=== PATIENT | male | born 1940 | race Caucasian/White ===

== ENCOUNTER 2020-03-16 05:17 | Inpatient (IN) | payer MEDICARE, MEDICAID ==
[2020-03-16] MEDS ORDERED: Acetaminophen 325 MG Tab PO PRN (05:51)
[2020-03-16] MEDS ORDERED: Lactated Ringers 1,000 ML IV SCH (06:00)
[2020-03-16 07:26] LABS: BLOOD UREA NITROGEN,BUN 21 mg/dL (7.0-18.0); CARBON DIOXIDE,CO2 26.3 mmol/L (21.0-32.0); CHLORIDE,CL 103 mmol/L (98-107); GLUCOSE RANDOM 122 mg/dL (74-106); POTASSIUM,K 2.9 mmol/L (3.5-5.1); SODIUM,NA 141 mmol/L (136-148)
--- NOTE | 2020-03-16 07:51 | PCM.HP.2 ---
H&P History of Present Illness - General Date of Service: 03/16/20 Admit Problem/Dx: Admission Diagnosis/Problem Admission Diagnosis/Problem Hypotension History Limitations: Reports: Altered Mental Status - History of Present Illness Initial Comments - Free Text/Narative: This 79-year-old male with past medical history of hypertension A. fib CAD [place] CVA and dementia presented to [facility] initially from assisted living care. Apparently EMS was called as patient was noted to be confused and having low blood pressures. Initially blood pressures were noted 70/40 and 80/50 he was given some fluids in [facility] ER and blood pressure did improve. No significant lab work showed infection or concerns. He was noted to have hypokalemia and atrial fibrillation on EKG. Chest x-ray showed possible prominence of interstitium with peripheral hazy alveolar infiltrates. The hospital is on diversion currently and and able to keep patients. Physician called hospitalist service to have patient transferred and admitted in our facility. Upon arrival patient is alert not completely oriented but he is able to answer questions appropriately. He denies feeling ill denies any shortness of breath cough chest pain or abdominal pain. He reports he is eating and drinking well denies any fevers or chills. Since arrival patient's blood pressure has been stable without any noticeable hypotension. He has been afebrile. New lab studies were obtained on arrival along with chest x-ray. Lab work on arrival to our facility shows no leukocytosis as white count is 7.18 potassium was noted at 2.9 BUN 21 creatinine 1.8. Phosphate 1.9 magnesium 1.9 troponin negative UA showed +1 bacteria large blood positive pyuria 2-4 chest x- ray revealed possible right mid lobe infiltrate. Blood cultures obtained as well as urine culture. Lactic acid elevated at 2.3 he was treated with a 500 mill bolus at this time. He will be admitted observation for hypotension, CAP and UTI. - Related Data Allergies/Adverse Reactions: Allergies Allergy/AdvReac Type Severity Reaction Status Date / Time wheat Allergy Other Verified 03/16/20 08:06 Home Medications: Home Meds Albuterol/Ipratropium [Combivent Respimat] 1 puff IH QID 03/16/20 [History] Aspirin 81 mg PO DAILY 03/16/20 [History] Chlorthalidone 50 mg PO DAILY 03/16/20 [History] FLUoxetine [PROzac] 20 mg PO DAILY 03/16/20 [History] Levothyroxine [Synthroid] 100 mcg PO ACBREAKFAST 03/16/20 [History] Metoprolol Tartrate 25 mg PO TID 03/16/20 [History] Pantoprazole [ProTONIX] 40 mg PO DAILY@0700 03/16/20 [History] Rivaroxaban [Xarelto] 20 mg PO DAILY 03/16/20 [History] Ubidecarenone [Co Q-10] 100 mg PO DAILY 03/16/20 [History] atorvaSTATin [Lipitor] 40 mg PO DAILY 03/16/20 [History] H&P Review of Systems - Review of Systems: Review Of Systems: See Below General: Reports: No Symptoms. Denies: Fever, Chills, Malaise, Weakness HEENT: Reports: No Symptoms. Denies: Headaches, Sinus Congestion, Vertigo Pulmonary: Denies: Shortness of Breath, Cough, Sputum Cardiovascular: Reports: Blood Pressure Problem. Denies: Chest Pain, Dyspnea on Exertion, Syncope Gastrointestinal: Reports: No Symptoms. Denies: Abdominal Pain, Black Stool, Bloody Stool, Constipation, Nausea, Vomiting Genitourinary: Reports: No Symptoms. Denies: Dysuria, Frequency, Burning Skin: Reports: No Symptoms Psychiatric: Reports: No Symptoms Neurological: Reports: No Symptoms Hematologic/Lymphatic: Reports: No Symptoms Immunologic: Reports: No Symptoms Exam - Exam Exam: See Below - Vital Signs Vital Signs: Last Vital Signs Temp 98.2 F 03/16/20 06:00 Pulse 80 03/16/20 06:00 Resp 17 03/16/20 06:00 BP 145/74 H 03/16/20 06:00 Pulse Ox 97 03/16/20 06:00 - Exam General: Alert, Oriented HEENT: Conjunctiva Clear, Mucosa Moist & [place], Posterior Pharynx Clear Neck: Supple Lungs: Normal Respiratory Effort, Decreased Breath Sounds, Crackles (Fine crackles bibasilar) Cardiovascular: Regular Rate, Irregular Rhythm. No: Systolic Murmur GI/Abdominal Exam: Normal Bowel Sounds, Soft, Non-Tender Extremities: Normal Inspection, Normal Range of Motion, Non-Tender, No Pedal Edema Skin: Warm, Dry, Intact Neuro Extensive - Mental Status: Alert. No: Oriented x3 (Alert and oriented to person and time) Neuro Extensive - Motor, Sensory, Reflexes: CN II-XII Intact Psychiatric: Alert, Normal Affect, Normal Mood, Other (Very impulsive in movements) - Patient Data Lab Results Last 24 hrs: Laboratory Results - last 24 hr 03/16/20 03/16/20 03/16/20 Range/Units 06:53 06:53 07:00 WBC 7.18 (4.0-11.0) K/uL RBC 4.27 L (4.50-5.90) M/uL Hgb 14.3 (13.0-17.0) g/dL Hct 42.1 (38.0-50.0) % MCV 98.6 H (80.0-98.0) fL MCH 33.5 H (27.0-32.0) pg MCHC 34.0 (31.0-37.0) g/dL RDW Std Deviation 46.8 (28.0-62.0) fl RDW Coeff of Monika 13 (11.0-15.0) % Plt Count 158 (150-400) K/uL MPV 11.70 (7.40-12.00) fL Neut % (Auto) 76.3 (48.0-80.0) % Lymph % (Auto) 17.3 (16.0-40.0) % [place] % (Auto) 5.3 (0.0-15.0) % Eos % (Auto) 0.8 (0.0-7.0) % Baso % (Auto) 0.3 (0.0-1.5) % Neut # (Auto) 5.5 (1.4-5.7) K/uL Lymph # (Auto) 1.2 (0.6-2.4) K/uL [place] # (Auto) 0.4 (0.0-0.8) K/uL Eos # (Auto) 0.1 (0.0-0.7) K/uL Baso # (Auto) 0.0 (0.0-0.1) K/uL Nucleated RBC % 0.0 /100WBC Nucleated RBCs # 0 K/uL Sodium 141 (136-148) mmol/L Potassium 2.9 L (3.5-5.1) mmol/L Chloride 103 (98-107) mmol/L Carbon Dioxide 26.3 (21.0-32.0) mmol/L BUN 21 H (7.0-18.0) mg/dL Creatinine 1.8 H (0.8-1.3) mg/dL Est Cr Clr Drug Dosing TNP Estimated GFR (MDRD) 36.6 ml/min Glucose 122 H (74-106) mg/dL Calcium 8.2 L (8.5-10.1) mg/dL Phosphorus 1.9 L (2.6-4.7) mg/dL Magnesium 1.9 (1.8-2.4) mg/dL Total Bilirubin 0.8 (0.2-1.0) mg/dL AST 19 (15-37) IU/L ALT 20 (14-63) IU/L Alkaline Phosphatase 71 (46-116) U/L Troponin I < 0.050 (0.000-0.056) ng/mL Total Protein 7.0 (6.4-8.2) g/dL Albumin 2.9 L (3.4-5.0) g/dL Globulin 4.1 H (2.6-4.0) g/dL Albumin/Globulin Ratio 0.7 L (0.9-1.6) Urine Color DARK YELLOW Urine Appearance CLOUDY Urine pH 5.0 (5.0-8.0) Ur Specific [place] >= 1.030 (1.001-1.035) Urine Protein TRACE H (NEGATIVE) mg/dL Urine Glucose (UA) NEGATIVE (NEGATIVE) mg/dL Urine Ketones NEGATIVE (NEGATIVE) mg/dL Urine Occult Blood LARGE H (NEGATIVE) Urine Nitrite NEGATIVE (NEGATIVE) Urine Bilirubin NEGATIVE (NEGATIVE) Urine Urobilinogen 0.2 (<2.0) EU/dL Ur Leukocyte Esterase NEGATIVE (NEGATIVE) Urine RBC TOO NUMEROUS TO CT (0-2/HPF) Urine WBC 2-4 (0-5/HPF) Ur Epithelial Cells FEW (NONE-FEW) Amorphous Sediment MODERATE (NEGATIVE) Urine Bacteria 1+ H (NEGATIVE) Urine Mucus LIGHT (NONE-MOD) Result Diagrams: 03/16/20 06:53 03/16/20 06:53 Sepsis Event Note - Focused Exam Vital Signs: Vital Signs Temp Pulse Resp BP Pulse Ox 03/16/20 06:00 98.2 F 80 17 145/74 H 97 - Problem List (1) CAP (community acquired pneumonia) SNOMED Code(s): 209891349 ICD Code: J18.9 - PNEUMONIA, UNSPECIFIED ORGANISM Status: Acute Current Visit: Yes (2) UTI (urinary tract infection) SNOMED Code(s): 67469469 ICD Code: N39.0 - URINARY TRACT INFECTION, SITE NOT SPECIFIED Status: Acute Current Visit: Yes (3) VONNIE (acute kidney injury) SNOMED Code(s): 04212878, 47579795 ICD Code: N17.9 - ACUTE KIDNEY FAILURE, UNSPECIFIED Status: Acute Current Visit: Yes (4) Hypokalemia SNOMED Code(s): 96659203 ICD Code: E87.6 - HYPOKALEMIA Status: Acute Current Visit: Yes (5) Hypophosphatemia SNOMED Code(s): 7006213 ICD Code: E83.39 - OTHER DISORDERS OF PHOSPHORUS METABOLISM Status: Acute Current Visit: Yes (6) History of CVA (cerebrovascular accident) SNOMED Code(s): 531307499 ICD Code: Z86.73 - PRSNL HX OF TIA (TIA), AND CEREB INFRC W/O RESID DEFICITS Status: Chronic Current Visit: Yes (7) History of myocardial infarction SNOMED Code(s): 426137270 ICD Code: I25.2 - OLD MYOCARDIAL INFARCTION Status: Chronic Current Visit: Yes (8) Hypertension SNOMED Code(s): 97895520 ICD Code: I10 - ESSENTIAL (PRIMARY) HYPERTENSION Status: Chronic Current Visit: Yes (9) Dementia SNOMED Code(s): 91557262 ICD Code: F03.90 - UNSPECIFIED DEMENTIA WITHOUT BEHAVIORAL DISTURBANCE Status: Chronic Current Visit: Yes (10) CAD (coronary artery disease) SNOMED Code(s): 51756865 ICD Code: I25.10 - ATHSCL HEART DISEASE OF [place] CORONARY ARTERY W/O ANG PCTRS Status: Chronic Current Visit: Yes (11) Hypothyroidism SNOMED Code(s): 97673100 ICD Code: E03.9 - HYPOTHYROIDISM, UNSPECIFIED Status: Chronic Current Visit: Yes (12) GERD (gastroesophageal reflux disease) SNOMED Code(s): 303660053 ICD Code: K21.9 - GASTRO-ESOPHAGEAL REFLUX DISEASE WITHOUT ESOPHAGITIS Status: Chronic Current Visit: Yes (13) Atrial fibrillation SNOMED Code(s): 85430882 ICD Code: I48.91 - UNSPECIFIED ATRIAL FIBRILLATION Status: Chronic Current Visit: Yes Problem List Initiated/Reviewed/Updated: Yes Orders Last 24hrs: Active Orders 24 hr Category Date Time Status Admission Status [Patient Status] [ADT] Routine ADT 03/16/20 05:48 Active Antiembolic Devices [RC] PER UNIT ROUTINE Care 03/16/20 05:52 Active EKG 12 Lead [EKG Documentation Completion] [RC] STAT Care 03/16/20 06:27 Active Telemetry Monitoring [Cardiac Monitoring] [RC] . Care 03/16/20 05:51 Active DIRECTED Vital Signs [RC] Q4H Care 03/16/20 05:51 Active Heart Healthy Diet [DIET] Diet 03/16/20 Breakfast Active Chest 1V Frontal [CR] Routine Exams 03/16/20 06:53 Ordered CORONAVIRUS COVID-19 ROBSON [MOLEC] Stat Lab 03/16/20 07:08 Received Acetaminophen [TylenoL] Med 03/16/20 05:51 Active 650 mg PO Q4H PRN Lactated Ringers [Ringers, Lactated] 1,000 ml Med 03/16/20 06:00 Active IV ASDIRECTED SCD [Sequential Compression Device] [OM.PC] Routine Oth 03/16/20 05:52 Ordered Medication Orders Acetaminophen (Tylenol) 650 mg PO Q4H PRN PRN Reason: Pain Lactated Ringer's (Ringers, Lactated) 1,000 mls @ 125 mls/hr IV ASDIRECTED BERNABE Last Admin: 03/16/20 06:05 Dose: 125 mls/hr Documented by: ZACHARY Assessment/Plan Comment:: This 79-year-old male admitted with CAP, UTI, VONNIE abnormalities 1. CAP - Xray shows RML infiltrate - BC pending - Not currently needing oxygen - Oxygen PRN keep sats >90% - Rocpehin and Azithromycin - Combivent inhaler per home dosing - hypotension has resolved here. Appears at home BPs average low 105/60s. 2. UTI - Per UA, UC pending - Denies symptoms - ROcephin 1 gm IV daily 3. VONNIE - Given IVFs - Unsure if this is chronic at baseline - Avoid nephrotoxic medications - Recheck in am 4. Hypokalemia/hypophosphatemia - Replace per IV today and check later this evening. - Monitor on telemetry 5. CAD/CVA/Afib/HTN - Continue Metoprolol, Xarelto and Atorvastatin and ASA - Hold Chlorthalidone due to electrolyte abnormalities and hypotension 6. Hypothyroidism: - Continue Levothyroxine VTE prophylaxis: Xarelto GI prophylaxis: Protonix home dose po Code Status: Full code, POLST on chart Dispo: 2 to 3 days pending improvement I did attempt to call daughter Alise at [phone] but the line went directly to [facility]
[2020-03-16] MEDS ORDERED: Potassium Phosphates 30 MMOLE in Sodium Chloride 0.9% 1,000 ML IV ONE (08:03)
[2020-03-16] MEDS ORDERED: Ondansetron 4 MG/2 ML SDV IVPUSH PRN (08:11)
[2020-03-16] MEDS ORDERED: Docusate Sodium 100 MG Cap PO PRN (08:11)
[2020-03-16] MEDS ORDERED: Sodium Chloride 0.9% 2.5 ML Syringe FLUSH PRN (08:11)
--- NOTE | 2020-03-16 08:20 | CR ---
INDICATION: Hypotension. Comparison: None. TECHNIQUE: Portable AP chest. FINDINGS: Normal size cardiac silhouette. Questionable infiltrates right middle lobe medial segment. No pneumothorax or pleural effusion. No evidence of CHF. IMPRESSION: 1. Questionable infiltrates medial segment right middle lobe. 2. Negative portable AP chest otherwise. Dictated by Evan Delgado MD @ Mar 16 2020 8:17AM Signed by Dr. Evan Delgado @ Mar 16 2020 8:19AM
[2020-03-16] MEDS ORDERED: [UNRECOGNIZED DRUG - OTHER] IV ONE (08:30)
[2020-03-16] MEDS ORDERED: POTASSIUM PHOSPHATES IV ONE (08:30)
[2020-03-16] MEDS ORDERED: POTASSIUM CHLORIDE IV ONE (08:30)
[2020-03-16] MEDS ORDERED: Sodium Chloride 0.9% 500 ML IV SCH (09:15)
[2020-03-16] MEDS: cefTRIAXone 1 GM in Premix Bag 1 BAG IV SCH (09:36)
[2020-03-16] MEDS: Azithromycin 500 MG in Sodium Chloride 0.9% 250 ML IV SCH (10:14)
[2020-03-16] MEDS: atorvaSTATin 40 MG Tab PO SCH (12:59)
[2020-03-16] MEDS: Aspirin 81 MG Tab.Chew PO SCH (12:59)
[2020-03-16] MEDS: Ubidecarenone [Co Q-10] 100 MG PO SCH (13:13)
[2020-03-16] MEDS: Metoprolol Tartrate 25 MG Tab PO SCH ×2 (13:13→21:57)
[2020-03-16] MEDS: Rivaroxaban 10 MG Tab PO SCH (17:06)
[2020-03-16] MEDS: Albuterol/Ipratropium 4 GM Inhalation Spray INH SCH ×2 (17:11→23:22)
[2020-03-16] MEDS ORDERED: Potassium Chloride 20 MEQ Tab.ER PO ONE (19:01)
[2020-03-17] MEDS: Metoprolol Tartrate 25 MG Tab PO SCH ×3 (05:07→22:26)
[2020-03-17] MEDS: Albuterol/Ipratropium 4 GM Inhalation Spray INH SCH ×4 (06:08→23:22)
[2020-03-17] MEDS ORDERED: Levothyroxine 100 MCG Tab PO SCH (07:30)
[2020-03-17] MEDS: Pantoprazole 40 MG Tab.CR PO SCH (08:01)
[2020-03-17] MEDS: Levothyroxine 75 MCG Tab PO SCH (08:01)
[2020-03-17] MEDS: cefTRIAXone 1 GM in Premix Bag 1 BAG IV SCH (08:05)
[2020-03-17] MEDS: atorvaSTATin 40 MG Tab PO SCH (09:33)
[2020-03-17] MEDS: Azithromycin 500 MG in Sodium Chloride 0.9% 250 ML IV SCH (09:34)
[2020-03-17] MEDS: Aspirin 81 MG Tab.Chew PO SCH (09:34)
[2020-03-17] MEDS: Ubidecarenone [Co Q-10] 100 MG PO SCH (09:34)
[2020-03-17 10:42] LABS: CARBON DIOXIDE,CO2 27.9 mmol/L (21.0-32.0); POTASSIUM,K 3.2 mmol/L (3.5-5.1)
--- NOTE | 2020-03-17 13:36 | PCM.PN ---
- General Info Date of Service: 03/17/20 Admission Dx/Problem (Free Text): Admission Diagnosis/Problem Admission Diagnosis/Problem Hypotension Subjective Update: Patient seen at bedside, no acute distress, no overnight events. - Review of Systems General: Denies: Fever, Weakness Pulmonary: Denies: Shortness of Breath, Pleuritic Chest Pain Cardiovascular: Denies: Chest Pain, Palpitations Gastrointestinal: Denies: Abdominal Pain, Constipation Genitourinary: Reports: Dysuria, Urgency. Denies: Frequency, Burning Musculoskeletal: Denies: Neck Pain, Shoulder Pain - Patient Data Vitals - Most Recent: Last Vital Signs Temp 36.8 C 03/17/20 13:01 Pulse 74 03/17/20 13:01 Resp 17 03/17/20 13:01 BP 139/78 03/17/20 13:01 Pulse Ox 94 L 03/17/20 13:01 Weight - Most Recent: 78.925 kg I&O - Last 24 Hours: Intake & Output 03/16/20 03/17/20 03/17/20 22:59 06:59 14:59 Intake Total 440 Output Total 470 Balance -30 Lab Results Last 24 Hours: Laboratory Results - last 24 hr 03/16/20 03/17/20 03/17/20 Range/Units 18:25 10:13 10:13 WBC 6.08 (4.0-11.0) K/uL RBC 3.79 L (4.50-5.90) M/uL Hgb 12.8 L (13.0-17.0) g/dL Hct 37.8 L (38.0-50.0) % MCV 99.7 H (80.0-98.0) fL MCH 33.8 H (27.0-32.0) pg MCHC 33.9 (31.0-37.0) g/dL RDW Std Deviation 47.7 (28.0-62.0) fl RDW Coeff of Monika 13 (11.0-15.0) % Plt Count 142 L (150-400) K/uL MPV 11.70 (7.40-12.00) fL Neut % (Auto) 75.8 (48.0-80.0) % Lymph % (Auto) 12.8 L (16.0-40.0) % [place] % (Auto) 9.0 (0.0-15.0) % Eos % (Auto) 2.1 (0.0-7.0) % Baso % (Auto) 0.3 (0.0-1.5) % Neut # (Auto) 4.6 (1.4-5.7) K/uL Lymph # (Auto) 0.8 (0.6-2.4) K/uL [place] # (Auto) 0.6 (0.0-0.8) K/uL Eos # (Auto) 0.1 (0.0-0.7) K/uL Baso # (Auto) 0.0 (0.0-0.1) K/uL Nucleated RBC % 0.0 /100WBC Nucleated RBCs # 0 K/uL Sodium 142 (136-148) mmol/L Potassium 3.2 L 3.2 L (3.5-5.1) mmol/L Chloride 106 (98-107) mmol/L Carbon Dioxide 27.9 (21.0-32.0) mmol/L BUN 16 (7.0-18.0) mg/dL Creatinine 1.5 H (0.8-1.3) mg/dL Est Cr Clr Drug Dosing 41.88 mL/min Estimated GFR (MDRD) 45.1 ml/min Glucose 144 H (74-106) mg/dL Calcium 8.0 L (8.5-10.1) mg/dL Phosphorus 1.9 L (2.6-4.7) mg/dL Magnesium 1.8 (1.8-2.4) mg/dL Stefan Results Last 24 Hours: Microbiology 03/16/20 08:49 Aerobic Blood Culture - Preliminary Blood - Venous - Lab Draw NO GROWTH AFTER 1 DAY Anaerobic Blood Culture - Preliminary NO GROWTH AFTER 1 DAY 03/16/20 08:38 Aerobic Blood Culture - Preliminary Blood - Venous NO GROWTH AFTER 1 DAY Anaerobic Blood Culture - Preliminary NO GROWTH AFTER 1 DAY Med Orders - Current: Current Medications Acetaminophen (Tylenol) 650 mg PO Q4H PRN PRN Reason: Pain Albuterol/Ipratropium (Combivent Respimat) 0 gm INH QID [facility] Last Admin: 03/17/20 11:36 Dose: 1 puff Documented by: Aspirin (Aspirin) 81 mg PO DAILY [facility] Last Admin: 03/17/20 09:34 Dose: 81 mg Documented by: Atorvastatin Calcium (Lipitor) 40 mg PO DAILY [facility] Last Admin: 03/17/20 09:33 Dose: 40 mg Documented by: Docusate Sodium (Colace) 100 mg PO BID PRN PRN Reason: Constipation Fluoxetine HCl (Prozac) 20 mg PO DAILY [facility] Last Admin: 03/17/20 09:33 Dose: 20 mg Documented by: Azithromycin 500 mg/ Sodium (Chloride) 250 mls @ 250 mls/hr IV DAILY [facility] Last Admin: 03/17/20 09:34 Dose: 250 mls/hr Documented by: Ceftriaxone Sodium/Dextrose 1 (gm/ Premix) 50 mls @ 100 mls/hr IV Q24H [facility] Last Admin: 03/17/20 08:05 Dose: 100 mls/hr Documented by: Levothyroxine Sodium (Levothyroxine) 75 mcg PO ACBREAKFAST [facility] Last Admin: 03/17/20 08:01 Dose: 75 mcg Documented by: Metoprolol Tartrate (Lopressor) 25 mg PO TID [facility] Last Admin: 03/17/20 08:01 Dose: 25 mg Documented by: Ondansetron HCl (Zofran) 4 mg IVPUSH Q4H PRN PRN Reason: Nausea Pantoprazole Sodium (Protonix) 40 mg PO DAILY@0800 [facility] Last Admin: 03/17/20 08:01 Dose: 40 mg Documented by: Ubidecarenone [Co Q- (10] 100 Mg) 100 each PO DAILY [facility] Last Admin: 03/17/20 09:34 Dose: Not Given Documented by: Rivaroxaban (Xarelto) 20 mg PO DAILY@1700 [facility] Last Admin: 03/16/20 17:06 Dose: 20 mg Documented by: Sodium Chloride (Saline Flush) 2.5 ml FLUSH ASDIRECTED PRN PRN Reason: Keep Vein Open Discontinued Medications Lactated Ringer's (Ringers, Lactated) 1,000 mls @ 125 mls/hr IV ASDIRECTED [facility] Last Admin: 03/16/20 06:05 Dose: 125 mls/hr Documented by: Potassium Phosphate 15 mmole/Potassium Chloride 20 meq/Sodium Chloride 1,015 mls @ 125 mls/hr IV ONETIME ONE Stop: 03/16/20 16:37 Last Admin: 03/16/20 11:25 Dose: 125 mls/hr Documented by: Sodium Chloride (Normal Saline) 500 mls @ 999 mls/hr IV .BOLUS BERNABE Last Admin: 03/16/20 09:30 Dose: 999 mls/hr Documented by: Levothyroxine Sodium (Synthroid) 100 mcg PO ACBREAKFAST [facility] Potassium Chloride (Klor-Con M20) 40 meq PO ONETIME ONE Stop: 03/16/20 19:02 Last Admin: 03/16/20 19:51 Dose: 40 meq Documented by: - Exam General: Alert, Cooperative, No Acute Distress Lungs: Clear to Auscultation, Normal Respiratory Effort Cardiovascular: Regular Rate, Regular Rhythm GI/Abdominal Exam: Normal Bowel Sounds, Soft, Non-Tender Sepsis Event Note - Evaluation Sepsis Screening Result: No Definite Risk - Focused Exam Vital Signs: Vital Signs Temp Pulse Pulse Resp BP BP Pulse Ox 03/17/20 13:01 36.8 C 74 17 139/78 94 L 03/17/20 08:03 37.1 C 99 16 156/90 H 95 03/17/20 08:01 99 156/90 H 03/17/20 04:32 36.1 C 50 L 18 130/80 97 - Problem List & Annotations (1) VONNIE (acute kidney injury) SNOMED Code(s): 19228552, 59001919 Code(s): N17.9 - ACUTE KIDNEY FAILURE, UNSPECIFIED Status: Acute Current Visit: Yes (2) CAP (community acquired pneumonia) SNOMED Code(s): 047057912 Code(s): J18.9 - PNEUMONIA, UNSPECIFIED ORGANISM Status: Acute Current Visit: Yes (3) Hypokalemia SNOMED Code(s): 77012584 Code(s): E87.6 - HYPOKALEMIA Status: Acute Current Visit: Yes (4) Hypophosphatemia SNOMED Code(s): 2948575 Code(s): E83.39 - OTHER DISORDERS OF PHOSPHORUS METABOLISM Status: Acute Current Visit: Yes (5) UTI (urinary tract infection) SNOMED Code(s): 92149530 Code(s): N39.0 - URINARY TRACT INFECTION, SITE NOT SPECIFIED Status: Acute Current Visit: Yes (6) Atrial fibrillation SNOMED Code(s): 43581274 Code(s): I48.91 - UNSPECIFIED ATRIAL FIBRILLATION Status: Chronic Current Visit: Yes (7) CAD (coronary artery disease) SNOMED Code(s): 98270938 Code(s): I25.10 - ATHSCL HEART DISEASE OF [place] CORONARY ARTERY W/O ANG PCTRS Status: Chronic Current Visit: Yes (8) Dementia SNOMED Code(s): 02623617 Code(s): F03.90 - UNSPECIFIED DEMENTIA WITHOUT BEHAVIORAL DISTURBANCE Status: Chronic Current Visit: Yes (9) GERD (gastroesophageal reflux disease) SNOMED Code(s): 844307275 Code(s): K21.9 - GASTRO-ESOPHAGEAL REFLUX DISEASE WITHOUT ESOPHAGITIS Status: Chronic Current Visit: Yes (10) History of CVA (cerebrovascular accident) SNOMED Code(s): 364021642 Code(s): Z86.73 - PRSNL HX OF TIA (TIA), AND CEREB INFRC W/O RESID DEFICITS Status: Chronic Current Visit: Yes (11) History of myocardial infarction SNOMED Code(s): 306452588 Code(s): I25.2 - OLD MYOCARDIAL INFARCTION Status: Chronic Current Visit: Yes (12) Hypertension SNOMED Code(s): 45238411 Code(s): I10 - ESSENTIAL (PRIMARY) HYPERTENSION Status: Chronic Current Visit: Yes (13) Hypothyroidism SNOMED Code(s): 75471546 Code(s): E03.9 - HYPOTHYROIDISM, UNSPECIFIED Status: Chronic Current Visit: Yes - Problem List Review Problem List Initiated/Reviewed/Updated: Yes - Plan Plan:: This 79-year-old male admitted with CAP, UTI, VONNIE abnormalities 1. CAP - Xray shows RML infiltrate - BC pending - Not currently needing oxygen - Oxygen PRN keep sats >90% - Rocpehin and Azithromycin - Combivent inhaler per home dosing - hypotension has resolved here. Appears at home BPs average low 105/60s. 2. UTI - Per UA, UC pending - Denies symptoms - Rocephin 1 gm IV daily for now, de-esclate based on cultures 3. VONNIE - Given IVFs, improving - Unsure of baseline - Avoid nephrotoxic medications - Recheck in am 4. Hypokalemia/hypophosphatemia - Will replete - Monitor on telemetry 5. CAD/CVA/Afib/HTN - Continue Metoprolol, Xarelto and Atorvastatin and ASA - Hold Chlorthalidone due to electrolyte abnormalities and hypotension 6. Hypothyroidism: - Continue Levothyroxine VTE prophylaxis: Xarelto GI prophylaxis: Protonix home dose po Code Status: Full code, POLST on chart Dispo: 2 to 3 days pending improvement I did attempt to call daughter Alise at [phone] [facility]
[2020-03-17] MEDS ORDERED: Phosphorus #1 250 MG Tab PO ONE (14:18)
[2020-03-17] MEDS ORDERED: Potassium Chloride 10% 20 MEQ/15 ML Soln 30 ML UD Cup PO ONE (14:18)
[2020-03-17] MEDS ORDERED: Magnesium Oxide 400 MG Tab PO ONE (14:18)
[2020-03-17] MEDS: Rivaroxaban 10 MG Tab PO SCH (17:55)
[2020-03-18] MEDS: Albuterol/Ipratropium 4 GM Inhalation Spray INH SCH ×3 (05:57→18:46)
[2020-03-18] MEDS: Levothyroxine 75 MCG Tab PO SCH (06:39)
[2020-03-18 06:56] LABS: CARBON DIOXIDE,CO2 27.8 mmol/L (21.0-32.0); POTASSIUM,K 3.5 mmol/L (3.5-5.1)
[2020-03-18] MEDS: cefTRIAXone 1 GM in Premix Bag 1 BAG IV SCH (09:14)
[2020-03-18] MEDS: atorvaSTATin 40 MG Tab PO SCH (09:19)
[2020-03-18] MEDS: Aspirin 81 MG Tab.Chew PO SCH (09:19)
[2020-03-18] MEDS: Pantoprazole 40 MG Tab.CR PO SCH (09:19)
[2020-03-18] MEDS: Metoprolol Tartrate 25 MG Tab PO SCH ×2 (09:20→20:04)
[2020-03-18] MEDS: Ubidecarenone [Co Q-10] 100 MG PO SCH (09:42)
[2020-03-18] MEDS: Azithromycin 500 MG in Sodium Chloride 0.9% 250 ML IV SCH (09:43)
[2020-03-18] MEDS ORDERED: Magnesium Sulfate/Water 2 GM/50 ML Premix Bag IV ONE (11:52)
--- NOTE | 2020-03-18 11:56 | PCM.PN ---
- General Info Date of Service: 03/18/20 - Review of Systems Systems Review Comment:: feeling better, reports difficulty with emptying bladder - Patient Data Vitals - Most Recent: Last Vital Signs Temp 37.1 C 03/18/20 09:23 Pulse 73 03/18/20 09:23 Resp 16 03/18/20 09:23 BP 105/66 03/18/20 09:23 Pulse Ox 94 L 03/18/20 09:23 Weight - Most Recent: 77.7 kg I&O - Last 24 Hours: Intake & Output 03/17/20 03/18/20 03/18/20 22:59 06:59 14:59 Intake Total 700 400 Output Total 675 860 Balance 25 -460 Lab Results Last 24 Hours: Laboratory Results - last 24 hr 03/18/20 03/18/20 Range/Units 06:20 06:20 WBC 8.09 (4.0-11.0) K/uL RBC 3.88 L (4.50-5.90) M/uL Hgb 12.8 L (13.0-17.0) g/dL Hct 38.3 (38.0-50.0) % MCV 98.7 H (80.0-98.0) fL MCH 33.0 H (27.0-32.0) pg MCHC 33.4 (31.0-37.0) g/dL RDW Std Deviation 46.5 (28.0-62.0) fl RDW Coeff of Monika 13 (11.0-15.0) % Plt Count 136 L (150-400) K/uL MPV 11.20 (7.40-12.00) fL Neut % (Auto) 66.7 (48.0-80.0) % Lymph % (Auto) 23.1 (16.0-40.0) % [place] % (Auto) 8.9 (0.0-15.0) % Eos % (Auto) 1.1 (0.0-7.0) % Baso % (Auto) 0.2 (0.0-1.5) % Neut # (Auto) 5.4 (1.4-5.7) K/uL Lymph # (Auto) 1.9 (0.6-2.4) K/uL [place] # (Auto) 0.7 (0.0-0.8) K/uL Eos # (Auto) 0.1 (0.0-0.7) K/uL Baso # (Auto) 0.0 (0.0-0.1) K/uL Nucleated RBC % 0.0 /100WBC Nucleated RBCs # 0 K/uL Sodium 141 (136-148) mmol/L Potassium 3.5 (3.5-5.1) mmol/L Chloride 106 (98-107) mmol/L Carbon Dioxide 27.8 (21.0-32.0) mmol/L BUN 15 (7.0-18.0) mg/dL Creatinine 1.3 (0.8-1.3) mg/dL Est Cr Clr Drug Dosing 48.32 mL/min Estimated GFR (MDRD) 53.3 ml/min Glucose 117 H (74-106) mg/dL Calcium 8.2 L (8.5-10.1) mg/dL Phosphorus 2.4 L (2.6-4.7) mg/dL Magnesium 1.6 L (1.8-2.4) mg/dL Stefan Results Last 24 Hours: Microbiology 03/16/20 08:49 Aerobic Blood Culture - Preliminary Blood - Venous - Lab Draw NO GROWTH AFTER 2 DAYS Anaerobic Blood Culture - Preliminary NO GROWTH AFTER 2 DAYS 03/16/20 08:38 Aerobic Blood Culture - Preliminary Blood - Venous NO GROWTH AFTER 2 DAYS Anaerobic Blood Culture - Preliminary NO GROWTH AFTER 2 DAYS 03/16/20 07:00 Urine Culture - Final Urine, Clean Catch MIXED LAURI <1000 CFU/ML Med Orders - Current: Current Medications Acetaminophen (Tylenol) 650 mg PO Q4H PRN PRN Reason: Pain Albuterol/Ipratropium (Combivent Respimat) 0 gm INH QID [facility] Last Admin: 03/18/20 11:38 Dose: 1 puff Documented by: Aspirin (Aspirin) 81 mg PO DAILY [facility] Last Admin: 03/18/20 09:19 Dose: 81 mg Documented by: Atorvastatin Calcium (Lipitor) 40 mg PO DAILY [facility] Last Admin: 03/18/20 09:19 Dose: 40 mg Documented by: Docusate Sodium (Colace) 100 mg PO BID PRN PRN Reason: Constipation Fluoxetine HCl (Prozac) 20 mg PO DAILY [facility] Last Admin: 03/18/20 09:18 Dose: 20 mg Documented by: Azithromycin 500 mg/ Sodium (Chloride) 250 mls @ 250 mls/hr IV DAILY [facility] Last Admin: 03/18/20 09:43 Dose: 250 mls/hr Documented by: Ceftriaxone Sodium/Dextrose 1 (gm/ Premix) 50 mls @ 100 mls/hr IV Q24H [facility] Last Admin: 03/18/20 09:14 Dose: 100 mls/hr Documented by: Levothyroxine Sodium (Levothyroxine) 75 mcg PO ACBREAKFAST [facility] Last Admin: 03/18/20 06:39 Dose: 75 mcg Documented by: Metoprolol Tartrate (Lopressor) 12.5 mg PO Q12H [facility] Last Admin: 03/18/20 09:20 Dose: 12.5 mg Documented by: Ondansetron HCl (Zofran) 4 mg IVPUSH Q4H PRN PRN Reason: Nausea Pantoprazole Sodium (Protonix) 40 mg PO DAILY@0800 [facility] Last Admin: 03/18/20 09:19 Dose: 40 mg Documented by: Ubidecarenone [Co Q- (10] 100 Mg) 100 each PO DAILY [facility] Last Admin: 03/18/20 09:42 Dose: Not Given Documented by: Rivaroxaban (Xarelto) 20 mg PO DAILY@1700 [facility] Last Admin: 03/17/20 17:55 Dose: 20 mg Documented by: Sodium Chloride (Saline Flush) 2.5 ml FLUSH ASDIRECTED PRN PRN Reason: Keep Vein Open Discontinued Medications Lactated Ringer's (Ringers, Lactated) 1,000 mls @ 125 mls/hr IV ASDIRECTED [facility] Last Admin: 03/16/20 06:05 Dose: 125 mls/hr Documented by: Potassium Phosphate 15 mmole/Potassium Chloride 20 meq/Sodium Chloride 1,015 mls @ 125 mls/hr IV ONETIME ONE Stop: 03/16/20 16:37 Last Admin: 03/16/20 11:25 Dose: 125 mls/hr Documented by: Sodium Chloride (Normal Saline) 500 mls @ 999 mls/hr IV .BOLUS [facility] Last Admin: 03/16/20 09:30 Dose: 999 mls/hr Documented by: Levothyroxine Sodium (Synthroid) 100 mcg PO ACBREAKFAST [facility] Magnesium Oxide (Magnesium Oxide) 800 mg PO ONETIME ONE Stop: 03/17/20 14:19 Last Admin: 03/17/20 15:19 Dose: 800 mg Documented by: Metoprolol Tartrate (Lopressor) 25 mg PO TID [facility] Last Admin: 03/17/20 08:01 Dose: 25 mg Documented by: Potassium Chloride (Klor-Con M20) 40 meq PO ONETIME ONE Stop: 03/16/20 19:02 Last Admin: 03/16/20 19:51 Dose: 40 meq Documented by: Potassium Chloride (Potassium Chloride) 40 meq PO ONETIME ONE Stop: 03/17/20 14:19 Last Admin: 03/17/20 15:19 Dose: 40 meq Documented by: Sodium Phosphate (Neutra-Phos) 250 mg PO ONETIME ONE Stop: 03/17/20 14:19 Last Admin: 03/17/20 15:19 Dose: 250 mg Documented by: - Exam General: Alert, Oriented Neck: Supple Lungs: Clear to Auscultation, Normal Respiratory Effort Cardiovascular: Regular Rate, Regular Rhythm GI/Abdominal Exam: Soft, Non-Tender, No Distention Extremities: Non-Tender, No Pedal Edema Skin: Warm, Dry, Intact Neurological: No New Focal Deficit Sepsis Event Note - Evaluation Sepsis Screening Result: No Definite Risk - Focused Exam Vital Signs: Vital Signs Temp Pulse Pulse Resp BP BP Pulse Ox 03/18/20 09:23 37.1 C 73 16 105/66 94 L 03/18/20 09:20 70 105/66 03/18/20 04:00 36.8 C 87 16 141/76 H 95 03/17/20 23:55 36.8 C 82 18 135/58 L 98 - Problem List Review Problem List Initiated/Reviewed/Updated: Yes - My Orders Last 24 Hours: My Active Orders 03/17/20 22:34 Urinary Catheter Assessment [RC] ASDIRECTED 03/17/20 22:45 Urinary Catheter Insertion [Insert Urinary Catheter] [OM.PC] ONETIME 03/18/20 03:50 Urinary Catheter Assessment [RC] ASDIRECTED 03/18/20 04:00 Insert Urinary Catheter [OM.PC] Q24H 03/18/20 11:52 Magnesium Sulfate/Water [Magnesium Sulfate in Water 2 GM/50 ML] 2 gm IV ONETIME ONE 03/18/20 11:53 Phosphorus #1 [Neutra-Phos] 250 mg PO ONETIME ONE - Plan Plan:: This 79-year-old male admitted with CAP, UTI, VONNIE abnormalities 1. CAP continue rocephin and azithromycin 2. UTI - Per UA, UC pending - Rocephin 1 gm IV daily for now, de-esclate based on cultures 3. VONNIE - Given IVFs, improving - Unsure of baseline - Avoid nephrotoxic medications - Recheck in am 4. Hypomagnesia/hypophosphatemia - Will replete - Monitor on telemetry 5. CAD/CVA/Afib/HTN - Continue Metoprolol, Xarelto and Atorvastatin and ASA - Hold Chlorthalidone due to electrolyte abnormalities and hypotension 6. Hypothyroidism: - Continue Levothyroxine VTE prophylaxis: Xarelto GI prophylaxis: Protonix home dose po Code Status: Full code,
[2020-03-18] MEDS ORDERED: Phosphorus #1 250 MG Tab PO ONE (12:00)
[2020-03-18] MEDS ORDERED: Magnesium Sulfate/Water 2 GM/50 ML BAG IV ONE (12:00)
[2020-03-18] MEDS: Rivaroxaban 10 MG Tab PO SCH (17:25)
[2020-03-19] MEDS: Albuterol/Ipratropium 4 GM Inhalation Spray INH SCH ×4 (00:04→17:19)
[2020-03-19] MEDS: Levothyroxine 75 MCG Tab PO SCH (06:47)
[2020-03-19] MEDS ORDERED: Magnesium Sulfate/Water 2 GM/50 ML BAG IV STA (08:00)
[2020-03-19] MEDS: Potassium Chloride 20 MEQ Tab.ER PO SCH ×2 (08:46→17:12)
[2020-03-19] MEDS: atorvaSTATin 40 MG Tab PO SCH (08:50)
[2020-03-19] MEDS: Aspirin 81 MG Tab.Chew PO SCH (08:51)
[2020-03-19] MEDS: Pantoprazole 40 MG Tab.CR PO SCH (08:52)
[2020-03-19] MEDS: Metoprolol Tartrate 25 MG Tab PO SCH ×2 (08:52→21:00)
--- NOTE | 2020-03-19 09:01 | PCM.PN ---
- General Info Date of Service: 03/19/20 Admission Dx/Problem (Free Text): Admission Diagnosis/Problem Admission Diagnosis/Problem Hypotension Subjective Update: Reports he is feeling much improved today. Denies any chest pain or shortness of breath. No abdominal pain. Reports he is feeling good bladder is emptied. Boyce catheter was placed yesterday for obstructive uropathy and urinary retention. I did speak with Alise, daughter, today regarding admission and likely discharge in a.m. We also discussed Boyce catheter. She reports that she felt he was on Flomax at one point and is unsure why he is not on it now. She will reach out to his PCP and follow-up and let us know. Functional Status: Reports: Pain Controlled, Tolerating Diet, Ambulating - Review of Systems General: Reports: No Symptoms. Denies: Weakness, Fatigue, Malaise Pulmonary: Reports: No Symptoms. Denies: Shortness of Breath Cardiovascular: Reports: No Symptoms. Denies: Chest Pain Gastrointestinal: Reports: No Symptoms. Denies: Abdominal Pain, Nausea, Vomiting Genitourinary: Reports: No Symptoms. Denies: Dysuria, Frequency, Burning Musculoskeletal: Reports: Other (Allover joint pain reports this is from arthritis) Skin: Reports: No Symptoms Neurological: Reports: No Symptoms Psychiatric: Reports: No Symptoms - Patient Data Vitals - Most Recent: Last Vital Signs Temp 98.7 F 03/19/20 07:17 Pulse 83 03/19/20 08:52 Resp 16 03/19/20 07:17 BP 115/77 03/19/20 08:52 Pulse Ox 97 03/19/20 07:17 Weight - Most Recent: 78.97 kg I&O - Last 24 Hours: Intake & Output 03/18/20 03/19/20 03/19/20 22:59 06:59 14:59 Intake Total 450 520 Output Total 650 650 Balance -200 -130 Lab Results Last 24 Hours: Laboratory Results - last 24 hr 03/18/20 03/19/20 03/19/20 Range/Units 19:35 05:40 05:40 WBC 8.06 (4.0-11.0) K/uL RBC 3.93 L (4.50-5.90) M/uL Hgb 13.1 (13.0-17.0) g/dL Hct 38.8 (38.0-50.0) % MCV 98.7 H (80.0-98.0) fL MCH 33.3 H (27.0-32.0) pg MCHC 33.8 (31.0-37.0) g/dL RDW Std Deviation 46.6 (28.0-62.0) fl RDW Coeff of Monika 13 (11.0-15.0) % Plt Count 140 L (150-400) K/uL MPV 11.90 (7.40-12.00) fL Neut % (Auto) 71.4 (48.0-80.0) % Lymph % (Auto) 17.2 (16.0-40.0) % [place] % (Auto) 9.3 (0.0-15.0) % Eos % (Auto) 1.7 (0.0-7.0) % Baso % (Auto) 0.4 (0.0-1.5) % Neut # (Auto) 5.8 H (1.4-5.7) K/uL Lymph # (Auto) 1.4 (0.6-2.4) K/uL [place] # (Auto) 0.8 (0.0-0.8) K/uL Eos # (Auto) 0.1 (0.0-0.7) K/uL Baso # (Auto) 0.0 (0.0-0.1) K/uL Nucleated RBC % 0.0 /100WBC Nucleated RBCs # 0 K/uL Sodium 138 (136-148) mmol/L Potassium 3.0 L (3.5-5.1) mmol/L Chloride 101 (98-107) mmol/L Carbon Dioxide 29.0 (21.0-32.0) mmol/L BUN 14 (7.0-18.0) mg/dL Creatinine 1.2 (0.8-1.3) mg/dL Est Cr Clr Drug Dosing 52.35 mL/min Estimated GFR (MDRD) 58.4 ml/min Glucose 108 H (74-106) mg/dL Calcium 8.4 L (8.5-10.1) mg/dL Phosphorus 2.5 L (2.6-4.7) mg/dL Magnesium 1.8 (1.8-2.4) mg/dL SARS-CoV-2 RNA (ROBSON) NEGATIVE (NEGATIVE) Stefan Results Last 24 Hours: Microbiology 03/16/20 08:49 Aerobic Blood Culture - Preliminary Blood - Venous - Lab Draw NO GROWTH AFTER 3 DAYS Anaerobic Blood Culture - Preliminary NO GROWTH AFTER 3 DAYS 03/16/20 08:38 Aerobic Blood Culture - Preliminary Blood - Venous NO GROWTH AFTER 3 DAYS Anaerobic Blood Culture - Preliminary NO GROWTH AFTER 3 DAYS 03/16/20 07:00 Urine Culture - Final Urine, Clean Catch MIXED YANIV <1000 CFU/ML Med Orders - Current: Current Medications Acetaminophen (Tylenol) 650 mg PO Q4H PRN PRN Reason: Pain Albuterol/Ipratropium (Combivent Respimat) 0 gm INH QID [facility] Last Admin: 03/19/20 05:45 Dose: 1 puff Documented by: Aspirin (Aspirin) 81 mg PO DAILY [facility] Last Admin: 03/19/20 08:51 Dose: 81 mg Documented by: Atorvastatin Calcium (Lipitor) 40 mg PO DAILY [facility] Last Admin: 03/19/20 08:50 Dose: 40 mg Documented by: Docusate Sodium (Colace) 100 mg PO BID PRN PRN Reason: Constipation Fluoxetine HCl (Prozac) 20 mg PO DAILY [facility] Last Admin: 03/19/20 08:50 Dose: 20 mg Documented by: Azithromycin 500 mg/ Sodium (Chloride) 250 mls @ 250 mls/hr IV DAILY [facility] Last Admin: 03/18/20 09:43 Dose: 250 mls/hr Documented by: Ceftriaxone Sodium/Dextrose 1 (gm/ Premix) 50 mls @ 100 mls/hr IV Q24H [facility] Last Admin: 03/18/20 09:14 Dose: 100 mls/hr Documented by: Levothyroxine Sodium (Levothyroxine) 75 mcg PO ACBREAKFAST [facility] Last Admin: 03/19/20 06:47 Dose: 75 mcg Documented by: Metoprolol Tartrate (Lopressor) 12.5 mg PO Q12H [facility] Last Admin: 03/19/20 08:52 Dose: 12.5 mg Documented by: Ondansetron HCl (Zofran) 4 mg IVPUSH Q4H PRN PRN Reason: Nausea Pantoprazole Sodium (Protonix) 40 mg PO DAILY@0800 [facility] Last Admin: 03/19/20 08:52 Dose: 40 mg Documented by: Ubidecarenone [Co Q- (10] 100 Mg) 100 each PO DAILY [facility] Last Admin: 03/18/20 09:42 Dose: Not Given Documented by: Potassium Chloride (Klor-Con M20) 40 meq PO BIDMEALS [facility] Last Admin: 03/19/20 08:46 Dose: 40 meq Documented by: Rivaroxaban (Xarelto) 20 mg PO DAILY@1700 [facility] Last Admin: 03/18/20 17:25 Dose: 20 mg Documented by: Sodium Chloride (Saline Flush) 2.5 ml FLUSH ASDIRECTED PRN PRN Reason: Keep Vein Open Discontinued Medications Lactated Ringer's (Ringers, Lactated) 1,000 mls @ 125 mls/hr IV ASDIRECTED [facility] Last Admin: 03/16/20 06:05 Dose: 125 mls/hr Documented by: Potassium Phosphate 15 mmole/Potassium Chloride 20 meq/Sodium Chloride 1,015 mls @ 125 mls/hr IV ONETIME ONE Stop: 03/16/20 16:37 Last Admin: 03/16/20 11:25 Dose: 125 mls/hr Documented by: Sodium Chloride (Normal Saline) 500 mls @ 999 mls/hr IV .BOLUS [facility] Last Admin: 03/16/20 09:30 Dose: 999 mls/hr Documented by: Magnesium Sulfate (Magnesium Sulfate In Water 2 Gm/50 Ml) 2 gm in 50 mls @ 50 mls/hr IV ONETIME ONE Stop: 03/18/20 12:59 Last Admin: 03/18/20 13:06 Dose: 50 mls/hr Documented by: Magnesium Sulfate (Magnesium Sulfate In Water 2 Gm/50 Ml) 2 gm in 50 mls @ 50 mls/hr IV NOW STA Stop: 03/19/20 08:59 Levothyroxine Sodium (Synthroid) 100 mcg PO ACBREAKFAST [facility] Magnesium Oxide (Magnesium Oxide) 800 mg PO ONETIME ONE Stop: 03/17/20 14:19 Last Admin: 03/17/20 15:19 Dose: 800 mg Documented by: Metoprolol Tartrate (Lopressor) 25 mg PO TID [facility] Last Admin: 03/17/20 08:01 Dose: 25 mg Documented by: Potassium Chloride (Klor-Con M20) 40 meq PO ONETIME ONE Stop: 03/16/20 19:02 Last Admin: 02/05/21 19:51 Dose: 40 meq Documented by: Potassium Chloride (Potassium Chloride) 40 meq PO ONETIME ONE Stop: 03/17/20 14:19 Last Admin: 03/17/20 15:19 Dose: 40 meq Documented by: Sodium Phosphate (Neutra-Phos) 250 mg PO ONETIME ONE Stop: 03/17/20 14:19 Last Admin: 03/17/20 15:19 Dose: 250 mg Documented by: Sodium Phosphate (Neutra-Phos) 250 mg PO ONETIME ONE Stop: 03/18/20 12:01 Last Admin: 03/18/20 13:09 Dose: 250 mg Documented by: - Exam Quality Assessment: Supplemental Oxygen (97% on 2 L we will attempt to wean.), DVT Prophylaxis General: Alert, Oriented, Cooperative, No Acute Distress Lungs: Clear to Auscultation, Normal Respiratory Effort Cardiovascular: Regular Rate, Irregular Rhythm GI/Abdominal Exam: Normal Bowel Sounds, Soft, Non-Tender (Male) Exam: Other (Boyce catheter in place) Back Exam: Normal Inspection, Full Range of Motion Extremities: Normal Inspection, Normal Range of Motion, Non-Tender, No Pedal Edema Neurological: No New Focal Deficit Psy/Mental Status: Alert, Normal Affect, Normal Mood Sepsis Event Note - Evaluation Sepsis Screening Result: No Definite Risk - Focused Exam Vital Signs: Vital Signs Temp Pulse Pulse Resp BP BP Pulse Ox 03/19/20 08:52 83 115/77 03/19/20 07:17 98.7 F 77 16 142/87 H 97 03/19/20 04:00 98.3 F 86 18 133/76 95 03/19/20 00:10 98.4 F 74 18 141/73 H 96 - Problem List & Annotations (1) CAP (community acquired pneumonia) SNOMED Code(s): 460264245 Code(s): J18.9 - PNEUMONIA, UNSPECIFIED ORGANISM Status: Acute Current Visit: Yes (2) UTI (urinary tract infection) SNOMED Code(s): 05068734 Code(s): N39.0 - URINARY TRACT INFECTION, SITE NOT SPECIFIED Status: Acute Current Visit: Yes (3) VONNIE (acute kidney injury) SNOMED Code(s): 03911566, 19642721 Code(s): N17.9 - ACUTE KIDNEY FAILURE, UNSPECIFIED Status: Acute Current Visit: Yes (4) Hypokalemia SNOMED Code(s): 43682537 Code(s): E87.6 - HYPOKALEMIA Status: Acute Current Visit: Yes (5) Hypophosphatemia SNOMED Code(s): 7585192 Code(s): E83.39 - OTHER DISORDERS OF PHOSPHORUS METABOLISM Status: Acute Current Visit: Yes (6) History of CVA (cerebrovascular accident) SNOMED Code(s): 465918821 Code(s): Z86.73 - PRSNL HX OF TIA (TIA), AND CEREB INFRC W/O RESID DEFICITS Status: Chronic Current Visit: Yes (7) History of myocardial infarction SNOMED Code(s): 228637838 Code(s): I25.2 - OLD MYOCARDIAL INFARCTION Status: Chronic Current Visit: Yes (8) Hypertension SNOMED Code(s): 54887019 Code(s): I10 - ESSENTIAL (PRIMARY) HYPERTENSION Status: Chronic Current Visit: Yes (9) Dementia SNOMED Code(s): 67673220 Code(s): F03.90 - UNSPECIFIED DEMENTIA WITHOUT BEHAVIORAL DISTURBANCE Status: Chronic Current Visit: Yes (10) CAD (coronary artery disease) SNOMED Code(s): 83744740 Code(s): I25.10 - ATHSCL HEART DISEASE OF [place] CORONARY ARTERY W/O ANG PCTRS Status: Chronic Current Visit: Yes (11) Hypothyroidism SNOMED Code(s): 01994894 Code(s): E03.9 - HYPOTHYROIDISM, UNSPECIFIED Status: Chronic Current Visit: Yes (12) GERD (gastroesophageal reflux disease) SNOMED Code(s): 427427149 Code(s): K21.9 - GASTRO-ESOPHAGEAL REFLUX DISEASE WITHOUT ESOPHAGITIS Status: Chronic Current Visit: Yes (13) Atrial fibrillation SNOMED Code(s): 91915836 Code(s): I48.91 - UNSPECIFIED ATRIAL FIBRILLATION Status: Chronic Current Visit: Yes - Problem List Review Problem List Initiated/Reviewed/Updated: Yes - My Orders Last 24 Hours: My Active Orders 03/19/20 08:00 Potassium Chloride [Klor-Con M20] 40 meq PO BIDMEALS 03/20/20 05:11 BASIC METABOLIC PANEL,BMP [CHEM] AM CBC WITH AUTO DIFF [HEME] AM MAGNESIUM [CHEM] AM PHOSPHORUS [CHEM] AM 03/21/20 05:11 BASIC METABOLIC PANEL,BMP [CHEM] AM CBC WITH AUTO DIFF [HEME] AM MAGNESIUM [CHEM] AM PHOSPHORUS [CHEM] AM - Plan Plan:: This 79-year-old male admitted with CAP, UTI, VONNIE 1. CAP - continue Rocephin and azithromycin -Wean oxygen to keep sats greater than 88% due to history COPD. 2. UTI -UC mixed yaniv less than 1000 colonies - Rocephin 1 gm IV daily 3. VONNIE -Has improved with hydration. -Also noted to have some obstructive uropathy over the weekend. Boyce catheter was placed -Did discuss with daughter she felt he was on medication for this plan per his med list he is not on Flomax. She will reach out to his PCP and notify us 4. Hypomagnesia/hypophosphatemia/hypokalemia - Will replete today and recheck tomorrow morning 5. CAD/CVA/Afib/HTN - Continue Metoprolol, Xarelto and Atorvastatin and ASA - Hold Chlorthalidone due to electrolyte abnormalities and hypotension. Daughter reports chlorthalidone was recently restarted and patient was leery about this. Blood pressures have been stable 110s to 130s systolically without chlorthalidone will hold this and hold on discharge. 6. Hypothyroidism: - Continue Levothyroxine VTE prophylaxis: Xarelto GI prophylaxis: Protonix home dose po Code Status: Full code Dispo: Likely home in a.m. Daughter Alise updated today
[2020-03-19] MEDS: Ubidecarenone [Co Q-10] 100 MG PO SCH (09:15)
[2020-03-19] MEDS: cefTRIAXone 1 GM in Premix Bag 1 BAG IV SCH ×2 (09:56→10:19)
[2020-03-19] MEDS: Azithromycin 500 MG in Sodium Chloride 0.9% 250 ML IV SCH ×2 (09:56→11:06)
[2020-03-19] MEDS: Phosphorus #1 250 MG Tab PO SCH ×2 (12:39→17:12)
[2020-03-19] MEDS: Rivaroxaban 10 MG Tab PO SCH (17:11)
[2020-03-20] MEDS: Phosphorus #1 250 MG Tab PO SCH ×2 (00:38→06:31)
[2020-03-20] MEDS: Albuterol/Ipratropium 4 GM Inhalation Spray INH SCH ×3 (00:38→11:13)
[2020-03-20 05:49] LABS: CARBON DIOXIDE,CO2 31.3 mmol/L (21.0-32.0); POTASSIUM,K 3.6 mmol/L (3.5-5.1)
[2020-03-20] MEDS: Levothyroxine 75 MCG Tab PO SCH (06:31)
[2020-03-20] MEDS: Metoprolol Tartrate 25 MG Tab PO SCH (08:22)
[2020-03-20] MEDS: Potassium Chloride 20 MEQ Tab.ER PO SCH (08:24)
[2020-03-20] MEDS: Aspirin 81 MG Tab.Chew PO SCH (08:25)
[2020-03-20] MEDS: atorvaSTATin 40 MG Tab PO SCH (08:26)
[2020-03-20] MEDS: Pantoprazole 40 MG Tab.CR PO SCH (08:26)
[2020-03-20] MEDS: Ubidecarenone [Co Q-10] 100 MG PO SCH (09:47)
[2020-03-20] MEDS ORDERED: Tamsulosin 0.4 MG Cap.ER PO ONE (10:09)
[2020-03-20] MEDS: cefTRIAXone 1 GM in Premix Bag 1 BAG IV SCH (10:14)
--- NOTE | 2020-03-20 10:21 | PCM.DCSUM1 ---
Discharge Summary - Hospital Course Brief History: This 79-year-old male with past medical history of hypertension A. fib CAD [place] CVA and dementia presented to [facility] initially from assisted living care. Apparently EMS was called as patient was noted to be confused and having low blood pressures. Initially blood pressures were noted 70/40 and 80/50 he was given some fluids in [facility] ER and blood pressure did improve. No significant lab work showed infection or concerns. He was noted to have hypokalemia and atrial fibrillation on EKG. Chest x-ray showed possible prominence of interstitium with peripheral hazy alveolar infiltrates. The hospital is on diversion currently and and able to keep patients. Physician called hospitalist service to have patient transferred and admitted in our facility. Upon arrival patient is alert not completely oriented but he is able to answer questions appropriately. He denies feeling ill denies any shortness of breath cough chest pain or abdominal pain. He reports he is eating and drinking well denies any fevers or chills. Since arrival patient's blood pressure has been stable without any noticeable hypotension. He has been afebrile. New lab studies were obtained on arrival along with chest x-ray. Lab work on arrival to our facility shows no leukocytosis as white count is 7.18 potassium was noted at 2.9 BUN 21 creatinine 1.8. Phosphate 1.9 magnesium 1.9 troponin negative UA showed +1 bacteria large blood positive pyuria 2-4 chest x-ray revealed possible right mid lobe infiltrate. Blood cultures obtained as well as urine culture. Lactic acid elevated at 2.3 he was treated with a 500 mill bolus at this time. He will be admitted observation for hypotension, CAP and UTI. Diagnosis: Stroke: No - Discharge Data Discharge Date: 03/20/20 Discharge Disposition: Home, Self-Care 01 Condition: Good - Referral to Home Health Primary Care Physician: PCP Not In Area - Discharge Diagnosis/Problem(s) (1) CAP (community acquired pneumonia) SNOMED Code(s): 664161055 ICD Code: J18.9 - PNEUMONIA, UNSPECIFIED ORGANISM Status: Acute Current Visit: Yes (2) UTI (urinary tract infection) SNOMED Code(s): 11882546 ICD Code: N39.0 - URINARY TRACT INFECTION, SITE NOT SPECIFIED Status: Acute Current Visit: Yes (3) VONNIE (acute kidney injury) SNOMED Code(s): 52706604, 91978486 ICD Code: N17.9 - ACUTE KIDNEY FAILURE, UNSPECIFIED Status: Acute Current Visit: Yes (4) Hypokalemia SNOMED Code(s): 91716360 ICD Code: E87.6 - HYPOKALEMIA Status: Acute Current Visit: Yes (5) Hypophosphatemia SNOMED Code(s): 4349968 ICD Code: E83.39 - OTHER DISORDERS OF PHOSPHORUS METABOLISM Status: Acute Current Visit: Yes (6) History of CVA (cerebrovascular accident) SNOMED Code(s): 880093994 ICD Code: Z86.73 - PRSNL HX OF TIA (TIA), AND CEREB INFRC W/O RESID DEFICITS Status: Chronic Current Visit: Yes (7) History of myocardial infarction SNOMED Code(s): 939406090 ICD Code: I25.2 - OLD MYOCARDIAL INFARCTION Status: Chronic Current Visit: Yes (8) Hypertension SNOMED Code(s): 62613967 ICD Code: I10 - ESSENTIAL (PRIMARY) HYPERTENSION Status: Chronic Current Visit: Yes (9) Dementia SNOMED Code(s): 48954506 ICD Code: F03.90 - UNSPECIFIED DEMENTIA WITHOUT BEHAVIORAL DISTURBANCE Status: Chronic Current Visit: Yes (10) CAD (coronary artery disease) SNOMED Code(s): 42352185 ICD Code: I25.10 - ATHSCL HEART DISEASE OF [place] CORONARY ARTERY W/O ANG PCTRS Status: Chronic Current Visit: Yes (11) Hypothyroidism SNOMED Code(s): 51070422 ICD Code: E03.9 - HYPOTHYROIDISM, UNSPECIFIED Status: Chronic Current Visit: Yes (12) GERD (gastroesophageal reflux disease) SNOMED Code(s): 577415225 ICD Code: K21.9 - GASTRO-ESOPHAGEAL REFLUX DISEASE WITHOUT ESOPHAGITIS Status: Chronic Current Visit: Yes (13) Atrial fibrillation SNOMED Code(s): 25947667 ICD Code: I48.91 - UNSPECIFIED ATRIAL FIBRILLATION Status: Chronic Current Visit: Yes - Patient Summary/Data Consults: Consultations 03/19/20 10:33 PT Evaluation and Treatment [CONS] Routine Hospital Course: Admission diagnoses: Hypotension Lactic acidosis CAP UTI VONNIE Hypokalemia Hypophosphatemia Discharge diagnoses Hypotension-resolved Lactic acidosis resolved CAP UTI VONNIE resolved Hypokalemia resolved Hypophosphatemia resolved BPH Other PMH CAD History [place] with medical management History CVA with residual deficits Hypothyroidism Mild cognitive impairment Atrial fibrillation And was admitted from [facility] secondary to hypotension CAP and possible UTI. He was also found to have some VONNIE hypokalemia and hypophosphatemia on arrival. He was treated with aggressive IV fluid resuscitation due to lactic acidosis this improved. Blood pressures remained stable during his stay here. His metoprolol was decreased slightly but blood pressures remained stable in 130s to 150s systolically. During his stay he was also noted to have electrolyte abnormalities including hypokalemia and hypophosphatemia. These were replaced. Chlorthalidone which was recently started by PCP was held due to hypotension and VONNIE along with multiple electrolyte abnormalities. We will likely keep this on hold on discharge and have PCP monitor blood pressures. Chest x-ray revealed possible right middle lobe pneumonia he was started on azithromycin and Rocephin for CAP. Blood cultures were obtained which were negative urine also showed mild possible UTI he was treated with Rocephin for this UC returned with mixed yaniv 1000 colonies. Likely no UTI.Patient was also noted during his stay to have some urinary retention. Daughter previously felt he was on Flomax but is unsure why he is not on it currently. PCP notes are reviewed no mention of this. It appears he was admitted in 2018 at [facility] for [place] and Flomax 0.4 mg while on his home med list but on discharge it was not there. We will restart Flomax 0.4 mg and have PCP remove Boyce at follow-up appointment to ensure he is voiding appropriately. Patient and daughter updated on this and feel this is appropriate. Blood pressures need to be monitored while on Flomax as this could cause some orthostatic hypotension. He will continue on all home medications including metoprolol anticoagulation with Xarelto and aspirin. He is to continue these on discharge as well. He was noted to have some unsteady gait likely secondary to his history of CVA with residual deficits. PT was recommended on discharge as outpatient daughter reports they are able to do this within [facility]. He will be discharged home on cefdinir for 2 more days to complete 7-day treatment for CAP. He will also have Flomax 0.4 mg at bedtime. Again PCP can remove Boyce catheter on follow-up appointment and monitor for self urination and urinary retention after that. We will set up urology referral as an outpatient. He is to return to PCP in 1 week. Return to ER or clinic if concerns should arise. - Patient Instructions Diet: Heart Healthy Diet Activity: As Tolerated, No Strenuous Activities Driving: Do Not Drive Showering/Bathing: May Shower Notify Provider of: Fever, Increased Pain, Swelling and Redness, Drainage, Nausea and/or Vomiting Other/Special Instructions: Have primary care provider remove catheter at appointment and monitor to insure you are able to void post removal and having Flomax for a couple days - Discharge Plan *PRESCRIPTION DRUG MONITORING PROGRAM REVIEWED*: Not Applicable *COPY OF PRESCRIPTION DRUG MONITORING REPORT IN PATIENT [place]: Not Applicable Prescriptions/Med Rec: Cefdinir 300 mg PO BID #4 capsule Tamsulosin HCl [Flomax] 0.4 mg PO BEDTIME #30 cap.er.24h Home Medications: Home Meds Albuterol/Ipratropium [Combivent Respimat] 1 puff IH QID 03/16/20 [History] Aspirin 81 mg PO DAILY 03/16/20 [History] FLUoxetine [PROzac] 20 mg PO DAILY 03/16/20 [History] Levothyroxine [Synthroid] 75 mcg PO ACBREAKFAST 03/16/20 [History] Metoprolol Tartrate 25 mg PO TID 03/16/20 [History] Pantoprazole [ProTONIX] 40 mg PO DAILY@0700 03/16/20 [History] Rivaroxaban [Xarelto] 20 mg PO DAILY 03/16/20 [History] Ubidecarenone [Co Q-10] 100 mg PO DAILY 03/16/20 [History] atorvaSTATin [Lipitor] 40 mg PO DAILY 03/16/20 [History] Cefdinir 300 mg PO BID #4 capsule 03/20/20 [Rx] Tamsulosin HCl [Flomax] 0.4 mg PO BEDTIME #30 cap.er.24h 03/20/20 [Rx] Oxygen Therapy Mode: Room Air Patient Handouts: Cefdinir Capsules, Hypotension, [id number], Urinary Tract Infection, Adult, Indwelling Urinary Catheter Care, Adult, [id number], Tamsulosin capsules, Community-Acquired Pneumonia, Adult, [id number] Referrals: Cait Martinez MD [Ordering Only Provider] - 03/23/20 10:30 am - Discharge Summary/Plan Comment DC Time >30 min.: No - Patient Data Vitals - Most Recent: Last Vital Signs Temp 98.2 F 03/20/20 07:44 Pulse 78 03/20/20 08:22 Resp 18 03/20/20 07:44 BP 132/75 03/20/20 08:22 Pulse Ox 95 03/20/20 07:44 Weight - Most Recent: 79.469 kg I&O - Last 24 hours: Intake & Output 03/19/20 03/20/20 03/20/20 22:59 06:59 14:59 Intake Total 700 460 Output Total 350 650 Balance 350 -190 Lab Results - Last 24 hrs: Laboratory Results - last 24 hr 03/20/20 03/20/20 03/20/20 Range/Units 05:14 05:14 05:14 WBC 7.65 (4.0-11.0) K/uL RBC 3.81 L (4.50-5.90) M/uL Hgb 13.0 (13.0-17.0) g/dL Hct 38.0 (38.0-50.0) % MCV 99.7 H (80.0-98.0) fL MCH 34.1 H (27.0-32.0) pg MCHC 34.2 (31.0-37.0) g/dL RDW Std Deviation 46.8 (28.0-62.0) fl RDW Coeff of Monika 13 (11.0-15.0) % Plt Count 136 L (150-400) K/uL MPV 11.70 (7.40-12.00) fL Neut % (Auto) 64.7 (48.0-80.0) % Lymph % (Auto) 22.4 (16.0-40.0) % [place] % (Auto) 8.8 (0.0-15.0) % Eos % (Auto) 3.7 (0.0-7.0) % Baso % (Auto) 0.4 (0.0-1.5) % Neut # (Auto) 5.0 (1.4-5.7) K/uL Lymph # (Auto) 1.7 (0.6-2.4) K/uL [place] # (Auto) 0.7 (0.0-0.8) K/uL Eos # (Auto) 0.3 (0.0-0.7) K/uL Baso # (Auto) 0.0 (0.0-0.1) K/uL Nucleated RBC % 0.0 /100WBC Nucleated RBCs # 0 K/uL Sodium 140 (136-148) mmol/L Potassium 3.6 (3.5-5.1) mmol/L Chloride 105 (98-107) mmol/L Carbon Dioxide 31.3 (21.0-32.0) mmol/L BUN 17 (7.0-18.0) mg/dL Creatinine 1.3 (0.8-1.3) mg/dL Est Cr Clr Drug Dosing 48.32 mL/min Estimated GFR (MDRD) 53.3 ml/min Glucose 114 H (74-106) mg/dL Calcium 8.1 L (8.5-10.1) mg/dL Phosphorus 3.2 (2.6-4.7) mg/dL Magnesium 2.0 (1.8-2.4) mg/dL TSH 3rd Generation 3.73 (0.36-3.74) uIU/mL SHANNAN Results - Last 24 hrs: Microbiology 03/16/20 08:49 Aerobic Blood Culture - Preliminary Blood - Venous - Lab Draw NO GROWTH AFTER 4 DAYS Anaerobic Blood Culture - Preliminary NO GROWTH AFTER 4 DAYS 03/16/20 08:38 Aerobic Blood Culture - Preliminary Blood - Venous NO GROWTH AFTER 4 DAYS Anaerobic Blood Culture - Preliminary NO GROWTH AFTER 4 DAYS Med Orders - Current: Current Medications Acetaminophen (Tylenol) 650 mg PO Q4H PRN PRN Reason: Pain Last Admin: 03/19/20 11:43 Dose: 650 mg Documented by: Albuterol/Ipratropium (Combivent Respimat) 0 gm INH QID [facility] Last Admin: 03/20/20 05:55 Dose: Not Given Documented by: Aspirin (Aspirin) 81 mg PO DAILY [facility] Last Admin: 03/20/20 08:25 Dose: 81 mg Documented by: Atorvastatin Calcium (Lipitor) 40 mg PO DAILY [facility] Last Admin: 03/20/20 08:26 Dose: 40 mg Documented by: Docusate Sodium (Colace) 100 mg PO BID PRN PRN Reason: Constipation Fluoxetine HCl (Prozac) 20 mg PO DAILY [facility] Last Admin: 03/20/20 08:25 Dose: 20 mg Documented by: Ceftriaxone Sodium/Dextrose 1 (gm/ Premix) 50 mls @ 100 mls/hr IV Q24H [facility] Last Admin: 03/20/20 10:14 Dose: 100 mls/hr Documented by: Azithromycin 500 mg/ Sodium (Chloride) 250 mls @ 250 mls/hr IV Q24H [facility] Last Admin: 03/19/20 11:06 Dose: 250 mls/hr Documented by: Levothyroxine Sodium (Levothyroxine) 75 mcg PO ACBREAKFAST [facility] Last Admin: 03/20/20 06:31 Dose: 75 mcg Documented by: Metoprolol Tartrate (Lopressor) 12.5 mg PO Q12H [facility] Last Admin: 03/20/20 08:22 Dose: 12.5 mg Documented by: Ondansetron HCl (Zofran) 4 mg IVPUSH Q4H PRN PRN Reason: Nausea Pantoprazole Sodium (Protonix) 40 mg PO DAILY@0800 [facility] Last Admin: 03/20/20 08:26 Dose: 40 mg Documented by: Ubidecarenone [Co Q- (10] 100 Mg) 100 each PO DAILY [facility] Last Admin: 03/20/20 09:47 Dose: Not Given Documented by: Potassium Chloride (Klor-Con M20) 40 meq PO BIDMEALS [facility] Last Admin: 03/20/20 08:24 Dose: 40 meq Documented by: Rivaroxaban (Xarelto) 20 mg PO DAILY@1700 [facility] Last Admin: 03/19/20 17:11 Dose: 20 mg Documented by: Sodium Chloride (Saline Flush) 2.5 ml FLUSH ASDIRECTED PRN PRN Reason: Keep Vein Open Sodium Phosphate (Neutra-Phos) 250 mg PO QID [facility] Last Admin: 03/20/20 06:31 Dose: 250 mg Documented by: Discontinued Medications Lactated Ringer's (Ringers, Lactated) 1,000 mls @ 125 mls/hr IV ASDIRECTED [facility] Last Admin: 03/16/20 06:05 Dose: 125 mls/hr Documented by: Potassium Phosphate 15 mmole/Potassium Chloride 20 meq/Sodium Chloride 1,015 mls @ 125 mls/hr IV ONETIME ONE Stop: 03/16/20 16:37 Last Admin: 03/16/20 11:25 Dose: 125 mls/hr Documented by: Azithromycin 500 mg/ Sodium (Chloride) 250 mls @ 250 mls/hr IV DAILY [facility] Last Admin: 03/19/20 09:56 Dose: Not Given Documented by: Ceftriaxone Sodium/Dextrose 1 (gm/ Premix) 50 mls @ 100 mls/hr IV Q24H [facility] Last Admin: 03/19/20 09:56 Dose: Not Given Documented by: Sodium Chloride (Normal Saline) 500 mls @ 999 mls/hr IV .BOLUS [facility] Last Admin: 03/16/20 09:30 Dose: 999 mls/hr Documented by: Magnesium Sulfate (Magnesium Sulfate In Water 2 Gm/50 Ml) 2 gm in 50 mls @ 50 mls/hr IV ONETIME ONE Stop: 03/18/20 12:59 Last Admin: 03/18/20 13:06 Dose: 50 mls/hr Documented by: Magnesium Sulfate (Magnesium Sulfate In Water 2 Gm/50 Ml) 2 gm in 50 mls @ 50 mls/hr IV NOW STA Stop: 03/19/20 08:59 Last Admin: 03/19/20 09:06 Dose: 50 mls/hr Documented by: Levothyroxine Sodium (Synthroid) 100 mcg PO ACBREAKFAST [facility] Magnesium Oxide (Magnesium Oxide) 800 mg PO ONETIME ONE Stop: 03/17/20 14:19 Last Admin: 03/17/20 15:19 Dose: 800 mg Documented by: Metoprolol Tartrate (Lopressor) 25 mg PO TID [facility] Last Admin: 03/17/20 08:01 Dose: 25 mg Documented by: Potassium Chloride (Klor-Con M20) 40 meq PO ONETIME ONE Stop: 03/16/20 19:02 Last Admin: 03/16/20 19:51 Dose: 40 meq Documented by: Potassium Chloride (Potassium Chloride) 40 meq PO ONETIME ONE Stop: 03/17/20 14:19 Last Admin: 03/17/20 15:19 Dose: 40 meq Documented by: Sodium Phosphate (Neutra-Phos) 250 mg PO ONETIME ONE Stop: 03/17/20 14:19 Last Admin: 03/17/20 15:19 Dose: 250 mg Documented by: Sodium Phosphate (Neutra-Phos) 250 mg PO ONETIME ONE Stop: 03/18/20 12:01 Last Admin: 03/18/20 13:09 Dose: 250 mg Documented by: Tamsulosin HCl (Flomax) 0.4 mg PO ONETIME ONE Stop: 03/20/20 10:10 - Exam General: Reports: Alert, Oriented, Cooperative, No Acute Distress Lungs: Reports: Clear to Auscultation, Normal Respiratory Effort Cardiovascular: Reports: Regular Rate, Irregular Rhythm GI/Abdominal Exam: Normal Bowel Sounds, Soft, Non-Tender (Male) Exam: Other (Boyce catheter in place draining yellow urine.) Extremities: Normal Inspection, Normal Range of Motion, Non-Tender, No Pedal Edema Skin: Reports: Warm, Dry Psy/Mental Status: Reports: Alert, Normal Affect, Normal Mood
[2020-03-20] MEDS: Azithromycin 500 MG in Sodium Chloride 0.9% 250 ML IV SCH (11:04)
== END 2020-03-20 12:00 | disposition home or self-care (01) | DRG 682 ==
LOC: MW.MS 05:17 → OBSVTOIN 03-18 11:00
PROVIDERS: ADMIT Student in an Organized Health Care Education/Training Program; ATTEND Student in an Organized Health Care Education/Training Program
DX: N17.9 Acute kidney failure, unspecified (principal); J18.9 Pneumonia, unspecified organism; N39.0 Urinary tract infection, site not specified; E83.39 Other disorders of phosphorus metabolism; E87.6 Hypokalemia; Z86.73 Personal history of transient ischemic attack (TIA), and cerebral infarction without residual deficits; I25.2 Old myocardial infarction; I10 Essential (primary) hypertension; F03.90 Unspecified dementia, unspecified severity, without behavioral disturbance, psychotic disturbance, mood disturbance, and anxiety; I25.10 Atherosclerotic heart disease of native coronary artery without angina pectoris; E03.9 Hypothyroidism, unspecified; K21.9 Gastro-esophageal reflux disease without esophagitis; I48.91 Unspecified atrial fibrillation; Z91.02 Food additives allergy status; Z79.01 Long term (current) use of anticoagulants; Z79.82 Long term (current) use of aspirin; Z79.890 Hormone replacement therapy; Z79.899 Other long term (current) drug therapy; Z20.822 Contact with and (suspected) exposure to COVID-19
CPT/HCPCS: 36415 ×3; 51701 ×2; 71045; 80048 ×2; 80053; 81001; 83605 ×2; 83735 ×3; 84100 ×3; 84132; 84484; 85025 ×3; 87040 ×2; 87086; 93005; 96375; 96376; A9270 ×23; G0378 ×2; J0456 ×3; J0696 ×3; J3480; J7030; J7040; J7050 ×3; J7120; U0002; 51702; 84443; 94640; 96365; 97116-GP; 97161-GP; J3475